=== PATIENT | female | born 1975 | race Hispanic/Latino ===

== ENCOUNTER 2018-10-27 08:04 | Emergency (ER) | payer SELFPAY ==
[~2018-10-27] VITALS: Ht 147.3 cm; Wt 73.0 kg
[~2018-10-27 08:04] MED LIST: AMOXICILLIN500 MG PO; CIPRO500 MG OR; CIPROFLOXACN500 MG PO; CLARITIN10 M1 PO; CORTISPORIN OTI10 M1 AS; KEFLEX500 MG PO; LISINOPRIL20 MG PO; MACROBID100 MG OR; METFORMIN HCL750 MG PO; METFORMIN850 MG PO; PYRIDIUM200 MG OR; ROBITUSSIN AC10 ML PO; TRAMADOL HCL50 MG OR
[2018-10-27 08:50] LABS: HEMATOCRIT 42.1 % (37.0-47.0); HEMOGLOBIN 13.8 g/dl (12.0-16.0); IMMATURE GRANULOCYTES 0.4 % (0.0-5.0); MEAN CELL VOLUME 82.7 fL CALC (80.0-100.0); MEAN CORPUSCULAR HGB 27.1 pG CALC (26.0-32.0); MEAN CORPUSCULAR HGB CONC 32.8 g/L CALC (32.0-36.0); NEUT# 6.98 thou/uL (2.00-7.15); RED BLOOD COUNT 5.09 mill/uL (4.20-5.60); RED CELL DISTRI WIDTH 13.2 % (11.5-15.5)
[2018-10-27 08:51] LABS: URINE BILIRUBIN - DIPSTICK NEGATIVE (NEGATIVE); URINE BLOOD DIPSTICK NEGATIVE (NEGATIVE); URINE COLOR YELLOW; URINE GLUCOSE - DIPSTICK NEGATIVE (NEGATIVE); URINE KETONE NEGATIVE (NEGATIVE); URINE NITRITE - DIPSTICK NEGATIVE (Negative); URINE PH 8.5 (4.5-8.0); URINE PROTEIN - DIPSTICK 30 mg/dL (NEG-TRACE); URINE SPECIFIC GRAVITY 1.015; URINE UROBILINOGEN - DIPSTICK 0.2 E.U./dL (0.2)
[2018-10-27 08:52] LABS: URINE LEUK ESTERASE SMALL (NEGATIVE)
[2018-10-27 09:01] LABS: URINE RBC 0-2 RBC/hpf (0-5); URINE SQUAMOUS EPITHELIAL CELL FEW EPI/hpf (0-FEW)
[2018-10-27 09:02] LABS: URINE AMORPH SEDIMENT MANY hpf (NONE-FEW)
[2018-10-27 09:04] LABS: ALBUMIN 4.4 g/dL (3.2-5.0); ALKALINE PHOSPHATASE 108 u/l (38-126); ANION GAP 15 (6-22 (CALC)); BILIRUBIN, TOTAL 0.5 mg/dL (0.0-1.4); BUN 11 mg/dL (7-17); BUN/CREATININE RATIO 26 (12-20 (CALC)); CARBON DIOXIDE 29 mmol/l (22-30); CHLORIDE 100 mmol/l (95-108); CREATININE 0.4 mg/dL (0.5-1.0); GFR > 60 ML/MIN (>=60 (CALC)); GFR FOR AFR.AMER. > 60 ML/MIN (>=60 (CALC)); POTASSIUM 3.9 mmol/l (3.5-5.1); SGOT/AST 15 u/l (14-36); SODIUM 140 mmol/l (137-146); TOTAL PROTEIN 7.8 g/dL (6.3-8.2)
[2018-10-27] MEDS ORDERED: METRONIDAZOL500 MG PO ×2 (09:17→09:57)
[2018-10-27] MEDS ORDERED: ZITHROMAX250 MG PO ×2 (09:17→09:57)
[2018-10-27] MEDS ORDERED: LISINOPRIL20 MG PO ×2 (09:17→09:57)
[2018-10-27] MEDS ORDERED: MONISTAT VA ×2 (09:17→09:57)
[2018-10-27 09:40] VITALS: BP 168/90
== END 2018-10-27 09:59 | disposition home or self-care (01) | DRG 759 ==
LOC: ED 08:04
PROVIDERS: Emergency Medicine
DX: N76.0 Acute vaginitis (principal); I10 Essential (primary) hypertension

== ENCOUNTER 2019-06-04 10:19 | Emergency (ER) | payer SELFPAY ==
[~2019-06-04 10:19] MED LIST changes: +METRONIDAZOL500 MG PO; +MONISTAT VA; +ZITHROMAX250 MG PO
[2019-06-04] MEDS ORDERED: TAM75CAP PO (10:50)
[2019-06-04 11:08] VITALS: BP 160/80
== END 2019-06-04 11:08 | disposition home or self-care (01) | DRG 153 ==
LOC: ED 10:19
DX: J11.1 Influenza due to unidentified influenza virus with other respiratory manifestations (principal); I10 Essential (primary) hypertension; E11.9 Type 2 diabetes mellitus without complications; Z79.84 Long term (current) use of oral hypoglycemic drugs

== ENCOUNTER 2021-08-27 09:26 | Emergency (ER) | payer BC ==
[~2021-08-27] VITALS: Ht 147.3 cm; Wt 79.0 kg
[2021-08-27] VITALS (11 sets, daily range): BP systolic 173–204; BP diastolic 79–113
[~2021-08-27 09:26] MED LIST changes: +TAM75CAP PO
[2021-08-27 10:18] LABS: HEMOGLOBIN 13.2 g/dl (12.0-16.0); IMMATURE GRANULOCYTES 0.4 % (0.0-5.0); MEAN CELL VOLUME 83.5 fL CALC (80.0-100.0); MEAN CORPUSCULAR HGB 26.9 pG CALC (26.0-32.0); MEAN CORPUSCULAR HGB CONC 32.2 g/dL CAL (32.0-36.0); NEUT# 3.81 thou/uL (2.00-7.15); RED BLOOD COUNT 4.91 mill/uL (4.20-5.60)
[2021-08-27 10:34] LABS: ALKALINE PHOSPHATASE 84 u/l (38-126); ANION GAP 11 (6-22 (CALC)); BILIRUBIN, TOTAL 0.4 mg/dL (0.0-1.4); BUN 12 mg/dL (7-17); BUN/CREATININE RATIO 26 (12-20 (CALC)); CARBON DIOXIDE 29 mmol/l (22-30); CHLORIDE 101 mmol/l (95-108); CREATININE 0.4 mg/dL (0.5-1.0); GFR > 60 ML/MIN (>=60 (CALC)); GFR FOR AFR.AMER. > 60 ML/MIN (>=60 (CALC)); LIPASE 50 u/l (23-300); POTASSIUM 3.8 mmol/l (3.5-5.1); SGOT/AST 21 u/l (14-36); SODIUM 137 mmol/l (137-146); TOTAL PROTEIN 7.5 g/dL (6.3-8.2)
[2021-08-27 10:35] LABS: URINE BILIRUBIN - DIPSTICK NEGATIVE (NEGATIVE); URINE BLOOD DIPSTICK NEGATIVE (NEGATIVE); URINE COLOR YELLOW; URINE GLUCOSE - DIPSTICK NEGATIVE (NEGATIVE); URINE KETONE NEGATIVE (NEGATIVE); URINE LEUK ESTERASE NEGATIVE (NEGATIVE); URINE PH 6.5 (4.5-8.0); URINE PROTEIN - DIPSTICK NEGATIVE (NEG-TRACE); URINE SPECIFIC GRAVITY >=1.030; URINE UROBILINOGEN - DIPSTICK 0.2 E.U./dL (0.2)
[2021-08-27 10:37] LABS: ACT PARTIAL THROMBO TIME 28.9 SECONDS (20.0-32.5); INTERNATIONAL NORMALIZED RATIO 0.9 RATIO (0.7-1.3); PROTHROMBIN TIME 9.9 SECONDS (9.0-12.5)
[2021-08-27 10:37] LABS: URINE NITRITE - DIPSTICK NEGATIVE (Negative)
[2021-08-27 10:38] LABS: HCG SERUM/URINE (NEG/POS) NEGATIVE (NEGATIVE)
[2021-08-27] MEDS ORDERED: TESSALON PERLE100 MG PO (14:09)
[2021-08-27] MEDS ORDERED: ZPAK PO (14:09)
== END 2021-08-27 14:21 | disposition home or self-care (01) | DRG 179 ==
LOC: ED 09:26 → ED-I 12:05 → ED 14:21
DX: U07.1 COVID-19 (principal); J40 Bronchitis, not specified as acute or chronic; E11.9 Type 2 diabetes mellitus without complications; I10 Essential (primary) hypertension